=== PATIENT | female | born 1980 | race Caucasian/White ===

== ENCOUNTER 2016-11-25 22:32 | Emergency (ER) | payer BC ==
[~2016-11-25] VITALS: Ht 157.5 cm; Wt 72.0 kg
[~2016-11-25 22:32] MED LIST: ASCO10003 PO; CETI10TA84 PO; CLC100 PO; MTR600X PO; MYL80 PO; OXYC-57 PO; PANT40TA PO; SUCR1TAB PO
[2016-11-25 22:34] VITALS: TEMP 36.6; Ht 157.5 cm; Wt 72.0 kg
[2016-11-25] MEDS ORDERED: SODIUM CHLORIDE 0.9% 1000ML 1,000 ML IV STA (22:50)
--- NOTE | 2016-11-25 23:01 | EMERGENCY ROOM VISIT NOTE ---
History First contact with patient: 22:37 Chief Complaint: URINARY SYMPTOMS Stated Complaint: BLADDER INFECTION/STONES History of Present Illness The patient is a 36 year old female who presents to the Emergency Department by private vehicle for evaluation of her ongoing urinary she's. She reports that 3 weeks ago she developed what she thought was a urinary tract infection. She contacted her primary care provider's office and was called in a prescription for Macrobid. She was on this medication for one week without relief of symptoms. She reports that she had seen her primary care provider this past week and had a urine culture performed. This grew out beta strep. She was placed on Keflex. She is taking the medication for the past 48 hours without any resolve of symptoms. She reports pressure in her bladder which is worsening when she speaks she interestingly, denies any burning with urination, however. The patient denies any flank pain. She reports no fevers or chills. She denies any nausea or vomiting. She does report a history of kidney stones, but reports that this feels different. She did have an ultrasound scheduled for today which was canceled after she grew out the beta strep. She contacted the on-call provider for [facility] who directed her to the emergency department for further evaluation and management and possible need for CAT scan. She has an appointment tomorrow in their office in the outpatient setting. The patient rates her current discomfort as a 4/10. She denies any fevers, chills, distance , heaviness, chest pain, palpations, short of breath, hematemesis, hematochezia , melena, shon hematuria, or dysuria. She denies any chance for . She currently has her period. She denies any vaginal discharge or drainage. She reports no risk for STI. Review of Systems A complete 10-point Review of Systems was discussed with the patient, with pertinent positives and negatives listed in the History of Present Illness. All remaining Review of Systems questions can be considered negative unless otherwise specified. Past Medical/Surgical History Medical Problems: (1) ASTHMA, UNSPECIFIED (2) Bronchitis (3) Stomach problems Family History FH: gallbladder disease FH: heart disease Hypertension Kidney disease or stones Social History Smoking Status: Never Smoker Smokeless Tobacco Use: No Alcohol Use: none Drug Use: none Marital Status: Housing Status: lives with family Occupation Status: employed Current/Historical Medications Scheduled Biotin (Biotin 5000), 1 CAP PO DAILY Cephalexin Monohydrate (Keflex), 500 MG PO BID Cetirizine (Zyrtec), 10 MG PO DAILY Chromium Picolinate (Chromium Picolinate), 1 TAB PO DAILY Fish Oil ([place]-3), 1 CAP PO DAILY Multivitamin (Multivitamin), 1 TAB PO DAILY Probiotic Product (Probiotic), 1 CAP PO BID Tamsulosin Hcl (Flomax), 0.4 MG PO DAILY Scheduled PRN Guaifenesin Ext Rel (Mucinex Ext Rel), 1,200 MG PO Q12 PRN for Hydrocodone/Acetaminophen 5MG/325MG ([place] 5MG/325MG), 1-2 TABLET PO Q4H PRN for Pain Phenazopyridine HCl (Pyridium), 200 MG PO TID PRN for Bladder pain Sucralfate (Sucralfate), 1 GM PO ACHS PRN for Dyspepsia Allergies Coded Allergies: Fluticasone (Verified Allergy, Unknown, 'throat swelled shut', SOB, ) Salmeterol (Verified Allergy, Unknown, 'throat swelled shut', SOB, 08/18/14 ) Sumatriptan (Verified Allergy, Unknown, 'throat swelled shut', SOB, ) Physical Exam Vital Signs Date Time Temp Pulse Resp B/P Pulse Ox O2 Delivery O2 Flow Rate FiO2 11/26/16 01:11 75 20 109/69 98 11/26/16 00:25 78 20 109/55 98 Room Air 11/25/16 22:34 36.6 77 20 125/73 98 Room Air Pain Rating (0-10): 4 Physical Exam VITAL SIGNS - Vital signs and nursing notes were reviewed. GENERAL - 36-year-old female appearing her stated age who is in no acute distress. Communicates well with provider and answers questions appropriately. LUNGS - Chest wall symmetric without accessory muscle use, intercostals retractions, or central cyanosis. Normal vesicular breath sounds CTA B/L. No wheezes, rales, or rhonchi appreciated. CARDIAC - RRR with S1/S2. No murmur, rubs, or gallops appreciated. ABDOMEN - Abdominal contour flat and without pulsations or visible masses. BS normoactive all four quadrants. No tenderness to palpation appreciated throughout. No guarding. No Rebound Tenderness. Negative Rovsing's. Negative Alvares's. No palpable masses, hepatosplenomegaly, or ascites noted. PSYCH - A&Ox3 and cooperates fully with examiner. Pt is very pleasant and interacts well with examiner. Medical Decision & Procedures ER Provider Diagnostic Interpretation: Radiological imaging and reports were reviewed by myself. Radiologist's Interpretation per [facility] as follows: US RENAL: 8 mm stone a the right UVJ region. Mild - moderate obstructive changes. Right ureter jet is not identified. Debris in the bladder. Right kidney and 11 cm. Left kidney 11.0 cm Laboratory Results 11/25/16 23:00 Red Blood Count 4.09, Mean Corpuscular Volume 89.7, Mean Corpuscular Hemoglobin 31.3, Mean Corpuscular Hemoglobin Concent 34.9, Mean Platelet Volume 9.8, Neutrophils (%) (Auto) 46.2, Lymphocytes (%) (Auto) 44.0, Monocytes (%) (Auto) 6.0, Eosinophils (%) (Auto) 3.1, Basophils (%) (Auto) 0.5, Neutrophils # (Auto) 4.04, Lymphocytes # (Auto) 3.84, Monocytes # (Auto) 0.52, Eosinophils # (Auto) 0.27, Basophils # (Auto) 0.04 11/25/16 23:00 Test 11/25/16 23:00 White Blood Count 8.73 K/uL (4.8-10.8) Red Blood Count 4.09 M/uL (4.2-5.4) Hemoglobin 12.8 g/dL (12.0-16.0) Hematocrit 36.7 % (37-47) Mean Corpuscular Volume 89.7 fL (80-100) Mean Corpuscular Hemoglobin 31.3 pg (25-34) Mean Corpuscular Hemoglobin Concent 34.9 g/dl (32-36) Platelet Count 228 K/uL (130-400) Mean Platelet Volume 9.8 fL (7.4-10.4) Neutrophils (%) (Auto) 46.2 % Lymphocytes (%) (Auto) 44.0 % Monocytes (%) (Auto) 6.0 % Eosinophils (%) (Auto) 3.1 % Basophils (%) (Auto) 0.5 % Neutrophils # (Auto) 4.04 K/uL (1.4-6.5) Lymphocytes # (Auto) 3.84 K/uL (1.2-3.4) Monocytes # (Auto) 0.52 K/uL (0.11-0.59) Eosinophils # (Auto) 0.27 K/uL (0-0.5) Basophils # (Auto) 0.04 K/uL (0-0.2) RDW Standard Deviation 40.7 fL (36.4-46.3) RDW Coefficient of Variation 12.6 % (11.5-14.5) Immature Granulocyte % (Auto) 0.2 % Immature Granulocyte # (Auto) 0.02 K/uL (0.00-0.02) Urine Color YELLOW Urine Appearance CLEAR (CLEAR) Urine pH 5.5 (4.5-7.5) Urine Specific [place] 1.016 (1.000-1.030) Urine Protein NEG (NEG) Urine Glucose (UA) NEG (NEG) Urine Ketones NEG (NEG) Urine Occult Blood NEG (NEG) Urine Nitrite NEG (NEG) Urine Bilirubin NEG (NEG) Urine Urobilinogen NEG (NEG) Urine Leukocyte Esterase NEG (NEG) Urine Test NEG (NEG) Anion Gap 9.0 mmol/L (3-11) Est Creatinine Clear Calc Drug Dose 84.4 ml/min Estimated GFR () 102.2 Estimated GFR (Non- 88.2 BUN/Creatinine Ratio 25.5 (10-20) Calcium Level 9.2 mg/dl (8.5-10.1) Magnesium Level 1.8 mg/dl (1.8-2.4) Total Bilirubin 0.4 mg/dl (0.2-1) Aspartate Amino Transf (AST/SGOT) 19 U/L (15-37) Alanine Aminotransferase (ALT/SGPT) 24 U/L (12-78) Alkaline Phosphatase 53 U/L (45-117) Total Protein 7.2 gm/dl (6.4-8.2) Albumin 4.1 gm/dl (3.4-5.0) Globulin 3.1 gm/dl (2.5-4.0) Albumin/Globulin Ratio 1.3 (0.9-2) Lipase 169 U/L (73-393) Medications Administered Medications (Trade) Dose Ordered Sig/Guevara Route Start Time Stop Time Status Last Admin Dose Admin Sodium Chloride (Nss 1000ml) 1,000 ml @ 999 mls/hr Q1H1M STAT IV 11/25/16 22:50 11/25/16 23:50 DC 11/25/16 22:50 999 MLS/HR Tamsulosin HCl (Flomax Cap) 0.4 mg NOW ONCE PO 11/26/16 01:00 11/26/16 01:01 DC 11/26/16 01:06 0.4 MG Acetaminophen/ Hydrocodone Bitart ([place] 5/325mg Home Pack) 1 homepack UD ONCE PO 11/26/16 01:00 11/26/16 01:01 DC 11/26/16 01:06 1 HOMEPACK ED Course Patient was seen and evaluated by myself. Labs were drawn, saline lock in place. The patient was hydrated with 1000 mL of normal saline. Retroperitoneal ultrasound was obtained. Laboratory results demonstrate no acute leukocytosis, worrisome anemia, or bandemia. The patient has no significant electrolyte abnormalities. Urinalysis does not suggest infection. Urine is negative. Ultrasound concerning for distal 8 mm mildly obstructing stone. Case was reviewed with my attending physician who agrees the diagnostic approach and treatment plan. The patient was provided initial dose of Flomax orally in the emergency department. She was provided [place] to be used for breakthrough pain at home. She will follow-up with [facility] urology with whom she is followed in the past. She will return to the emergency department sooner in the setting of any changing or worsening symptoms. Patient discharged home afebrile and in good condition. Medical Decision Given the patient's presentation and stated complaints, I did elect to perform the above-mentioned workup. The patient percent today with ongoing pain with urination as well as occasional pain in her low back. She has no fever or leukocytosis. Her exam is actually otherwise unremarkable. Her urinalysis is unremarkable for infection. She does have a distal extremity stone which is likely given her pain when she reports her bladder. She was provided Flomax in the effort to help facilitate passage into the bladder. She was also provided [place] for any breakthrough pain. She is oriented Keflex. I do not feel that any further antibiotic coverage is necessary at this time. The patient will follow-up with her urology group from today's visit. She will return sooner for any changing or worsening symptoms. Patient discharged home afebrile and in good condition. In the evaluation and treatment of this patient, the following differential diagnoses were considered: Kidney Stone, STI, Bladder Cancer, pyelonephritis, hydronephrosis, Amongst Others. Impression Primary Impression: Right distal ureteral calculus Additional Impression: Pain on voiding Departure Information Dispostion Home / Self-Care Condition GOOD Prescriptions Tamsulosin Hcl (FLOMAX) 0.4 Mg Cap 0.4 MG PO DAILY for 7 Days, #7 CAP Prov: Rowdy Rosales PA-C 11/26/16 Hydrocodone/Acetaminophen 5MG/325MG ([place] 5MG/325MG) Tab 1-2 TABLET PO Q4H Y for Pain, #14 TAB For Initial Treatment Prov: Rowdy Rosales PA-C 11/26/16 Referrals Finesse Albarran M.D.(VIOLETA) (PCP) Abdi Jackson MD, Urology Patient Instructions A [facility], Kidney Stones, [facility] Additional Instructions You have been treated in the Emergency Department today for a Kidney Stone ( Nephrolithiasis). You have been prescribed [place] to be used for pain control. This is a narcotic medication. You cannot drive or consume alcohol while on this medicine. This medicine should only be used for pain that cannot be controlled with over-the- counter pain medicines. You have been prescribed Flomax 0.4 mg to be taken ONCE daily. This medicine has been prescribed as it can help relax the smooth muscles of the urinary tract increasing transit time of the kidney stone. For pain control, you can use the following [id number] medicines (if >12 yo): - Regular strength (325mg/tab) Tylenol (acetaminophen) 2 tabs every 4-6 hours as needed. Do not exceed 12 tablets in a 24 hour period. Avoid taking more than 4 grams (4000 mg) of Tylenol per day. This includes any other sources of acetaminophen you may take on a regular basis. - Regular strength (200 mg/tab) Advil (ibuprofen) 1-2 tabs every 4-6 hours as needed. Do not exceed a dose of 3200 mg per day. You have been provided a strainer and specimen collection cup. You should strain your urine to collect any passed stones. Your stones can be placed into the specimen cup and taken to your Urologist for further evaluation. You have been provided the contact information for the on-call Urologist. You should contact the Urologist's office tomorrow to establish a follow-up appointment from today's Emergency Department visit. Return to the Emergency Department if your symptoms persist despite the treatment plan outlined above or if you develop the following symptoms: intractable pain, fever, chills, or large amounts of blood in your urine.
[2016-11-25] MEDS ORDERED: MULT-506 PO (23:06)
[2016-11-25] MEDS ORDERED: CEPH500C2 PO (23:09)
[2016-11-25 23:12] LABS: BASO % 0.5 %; BASO ABS # 0.04 K/uL (0-0.2); COMPLETE YES; EOS % 3.1 %; HEMATOCRIT 36.7 % (37-47); IG% 0.2 %; LYMPH ABS # 3.84 K/uL (1.2-3.4); MEAN CELL VOLUME 89.7 fL (80-100); MEAN CORPUSCULAR HEMOGLOBIN 31.3 pg (25-34); MEAN CORPUSCULAR HGB CONC 34.9 g/dl (32-36); MEAN PLATELET VOLUME 9.8 fL (7.4-10.4); NEUT % 46.2 %; PLATELET COUNT 228 K/uL (130-400); RED BLOOD COUNT 4.09 M/uL (4.2-5.4); WHITE BLOOD COUNT 8.73 K/uL (4.8-10.8)
[2016-11-25] MEDS ORDERED: CHRO1TAB8 PO (23:12)
[2016-11-25] MEDS ORDERED: PHEN-876 PO (23:12)
[2016-11-25] MEDS ORDERED: GUAI1TAB55 PO (23:12)
[2016-11-25] MEDS ORDERED: BIOTCAP2 PO (23:12)
[2016-11-25] MEDS ORDERED: OMEG10007 PO (23:12)
[2016-11-25] MEDS ORDERED: MISCCAP80 PO (23:12)
[2016-11-25 23:20] LABS: URINE APPEARANCE CLEAR (CLEAR); URINE BILIRUBIN NEG (NEG); URINE COLOR YELLOW; URINE NITRITE NEG (NEG); URINE PH 5.5 (4.5-7.5); URINE SPECIFIC GRAVITY 1.016 (1.000-1.030); UROBILINOGEN NEG (NEG); ZZUR CULT IF INDIC CLEAN CATCH NO
[2016-11-25 23:21] LABS: MANUAL MICROSCOPIC REQUIRED? NO; REVIEW REQ? NO
[2016-11-25 23:33] LABS: BUN/CREATININE RATIO 25.5 (10-20); CALCIUM 9.2 mg/dl (8.5-10.1); CREATININE 0.84 mg/dl (0.60-1.20); MAGNESIUM 1.8 mg/dl (1.8-2.4); POTASSIUM 3.8 mmol/L (3.5-5.1)
[2016-11-25 23:36] LABS: ALB/GLOB RATIO 1.3 (0.9-2)
[2016-11-26] MEDS ORDERED: TAMS0.4C38 PO (00:57)
[2016-11-26] MEDS ORDERED: HYDR-5688 PO (00:57)
[2016-11-26] MEDS ORDERED: NORCO 5/325MG HOME PACK PO ONE (01:00)
[2016-11-26] MEDS ORDERED: TAMSULOSIN HCL 0.4 MG CAP PO ONE (01:00)
[2016-11-26 01:11] VITALS: BP 109/69; PULSE 75; O2SAT 98
--- NOTE | 2016-11-26 07:26 | DIAGNOSTIC IMAGING REPORT ---
RENAL ULTRASOUND CLINICAL HISTORY: Bladder pain. Bladder infection. Stones. COMPARISON STUDY: Renal ultrasound June 20, 2013 TECHNIQUE: Sonography of the kidneys and the urinary bladder was performed. FINDINGS: The right kidney measures 11 x 4 x 5.4 cm the left measures 11 x 4.6 x 4.7 cm. There is no left hydronephrosis. Note is made of moderate right hydroureteronephrosis. An echogenic focus along the right posterior lateral aspect of the bladder measuring approximately 8 mm likely reflects a right ureterovesical junction calculus. Both ureteral jets were identified. IMPRESSION: Moderate right hydroureteronephrosis due to a suspected ureterovesical junction calculus that measures approximately 6-8 mm. Electronically signed by: Kwabena Boone M.D. 11/26/2016 7:25 AM Dictated Date/Time: 11/26/2016 7:22 AM
== END 2016-11-26 01:13 | disposition home or self-care (01) ==
LOC: C.EDB 22:33
DX: N20.2 Calculus of kidney with calculus of ureter (principal); R30.0 Dysuria; J45.909 Unspecified asthma, uncomplicated; Z87.442 Personal history of urinary calculi; Z79.899 Other long term (current) drug therapy; Z88.8 Allergy status to other drugs, medicaments and biological substances; Z83.79 Family history of other diseases of the digestive system; Z82.49 Family history of ischemic heart disease and other diseases of the circulatory system; Z84.1 Family history of disorders of kidney and ureter

== ENCOUNTER → 2016-12-08 | Outpatient (CLI) | payer BC ==
[~2016-12-08] MED LIST changes: -ASCO10003 PO; +BIOTCAP2 PO; +CEPH500C2 PO; +CHRO1TAB8 PO; -CLC100 PO; +GUAI1TAB55 PO; +HYDR-5688 PO; +MISCCAP80 PO; -MTR600X PO; +MULT-506 PO; -MYL80 PO; +OMEG10007 PO; -OXYC-57 PO; -PANT40TA PO; +PHEN-876 PO
--- NOTE | 2016-12-08 09:07 | DIAGNOSTIC IMAGING REPORT ---
KUB HISTORY: N20.1 Ureteric [id number] COMPARISON: KUB 06/20/2013. FINDINGS: The bowel gas pattern is unremarkable. There are no dilated loops of small bowel to suggest an obstruction. The right renal shadow is mostly obscured overlying bowel. No definite renal or ureteral calculi identified. No bladder calculi. No pneumoperitoneum or pneumatosis. IMPRESSION: No renal or ureteral calculi identified. The right renal shadow is mostly obscured by overlying bowel gas. Electronically signed by: Dixon Milton M.D. 12/08/2016 9:05 AM Dictated Date/Time: 12/08/2016 9:03 AM
== END | disposition home or self-care (01) ==
LOC: C.RAD 07:33
PROVIDERS: ATTEND Urology
DX: N20.1 Calculus of ureter (principal)

== ENCOUNTER → 2016-12-09 | Outpatient (CLI) | payer BC ==
--- NOTE | 2016-12-09 13:07 | DIAGNOSTIC IMAGING REPORT ---
ULTRASOUND KIDNEYS AND BLADDER CLINICAL HISTORY: Nephrolithiasis. COMPARISON STUDY: Renal ultrasound dated 11/25/2016. KUB dated 12/08/2016. TECHNIQUE: Real-time, grayscale, and color flow sonography of the kidneys and bladder is performed. Images are reviewed in the transverse and longitudinal planes. FINDINGS: Kidneys: The kidneys are normal in size and echotexture. The right kidney measures 10.8 cm in length and the left kidney measures 11.3 cm in length. There is no hydronephrosis. No shadowing renal calculi are identified. There is no sonographic evidence of contour deforming renal mass lesion. No perinephric fluid is identified. Bladder: The bladder is normal in appearance. Bilateral ureteral jets were seen. IMPRESSION: Unremarkable sonographic assessment of the kidneys and bladder. Electronically signed by: David Dietz M.D. 12/09/2016 1:05 PM Dictated Date/Time: 12/09/2016 1:04 PM
== END | disposition home or self-care (01) ==
LOC: C.ULTR 12:13
PROVIDERS: ATTEND Urology
DX: N20.0 Calculus of kidney (principal)